=== PATIENT | male | born 1960 | race Native Hawaiian/Other Pacific Islander ===

== ENCOUNTER 2016-05-21 13:17 | Emergency (ER) | payer OTHER ==
[~2016-05-21] VITALS: Ht 182.9 cm; Wt 97.1 kg
[2016-05-21] MEDS ORDERED: LISI5TAB10 PO (13:28)
[2016-05-21] MEDS ORDERED: PROTONIX20 MG PO (13:28)
[2016-05-21] MEDS ORDERED: HYDR5TAB9 PO (15:13)
[2016-05-21] MEDS ORDERED: TRAM50TA PO (15:13)
== END 2016-05-21 15:30 | disposition home or self-care (01) ==
LOC: ED 13:17
DX: S22.058A Other fracture of T5-T6 vertebra, initial encounter for closed fracture (principal); W17.89XA Other fall from one level to another, initial encounter; Y92.410 Unspecified street and highway as the place of occurrence of the external cause
CPT/HCPCS: 96372; 99283; J2175; J2550

== ENCOUNTER 2018-08-03 20:18 | Outpatient (CLI) | payer OTHER ==
[~2018-08-03 20:18] MED LIST: HYDR5TAB9 PO; LISI5TAB10 PO; PROTONIX20 MG PO; TRAM50TA PO
== END 2018-08-03 20:28 | disposition short-term general hospital (02) ==
LOC: AMB 20:18
DX: M54.5 Low back pain (principal)
CPT/HCPCS: A0425; A0427

== ENCOUNTER 2018-08-03 20:37 | Emergency (ER) | payer OTHER ==
[~2018-08-03] VITALS: Ht 182.9 cm; Wt 97.1 kg
[2018-08-03 21:50] VITALS: BP 140/88; TEMP 98.4
== END 2018-08-03 21:50 | disposition home or self-care (01) ==
LOC: ED 20:37
DX: S22.089A Unspecified fracture of T11-T12 vertebra, initial encounter for closed fracture (principal); S32.019A Unspecified fracture of first lumbar vertebra, initial encounter for closed fracture; X50.0XXA Overexertion from strenuous movement or load, initial encounter
CPT/HCPCS: 96374; 99284; J1885

== ENCOUNTER 2018-08-04 18:41 | Outpatient (CLI) | payer OTHER | END 2018-08-04 19:18 | disposition short-term general hospital (02) | LOC: AMB 18:41 | DX: R50.9 Fever, unspecified (principal); M54.5 Low back pain | CPT/HCPCS: A0425; A0427 ==

== ENCOUNTER 2019-04-10 11:38 | Emergency (ER) | payer OTHER ==
[~2019-04-10] VITALS: Ht 182.9 cm; Wt 97.1 kg
[2019-04-10 12:41] LABS: PLATELET COUNT 163 K/uL (142-355)
[2019-04-10 12:47] LABS: POTASSIUM 3.8 mmol/L (3.6-5.2); SODIUM 139 mmol/L (136-145)
[2019-04-10 13:46] VITALS: BP 156/90; TEMP 98.6
== END 2019-04-10 13:44 | disposition home or self-care (01) ==
LOC: ED 11:38
PROVIDERS: Student in an Organized Health Care Education/Training Program
DX: R07.89 Other chest pain (principal)
CPT/HCPCS: 80048; 84484; 85027; 93005; 99283